=== PATIENT | female | born 1950 | race Caucasian/White ===

== ENCOUNTER 2016-12-19 20:41 | Emergency (ER) | payer OTHER ==
[~2016-12-19] VITALS: Ht 165.1 cm; Wt 96.0 kg
[~2016-12-19 20:41] MED LIST: CLON.5 PO; HYDRO50 PO; LEVO112T2 PO; PARO20TA PO; PERC5TAB12 PO; PRIM50 PO; PRIM50TA PO; SIMV20 PO; TOLT4 PO; TRAZ150T75 PO
[2016-12-19 20:45] VITALS: BP 161/91; PULSE 94; RESP 16; TEMP 98.5; O2SAT 96
[2016-12-19] MEDS ORDERED: SODIUM CHLORIDE 0.9% FLUSH 10 ML FLUSH IV FLUSH PRN (22:30)
[2016-12-19] MEDS ORDERED: PARO1TAB72 PO (22:44)
[2016-12-19] MEDS ORDERED: LEVO-168 PO (22:44)
[2016-12-19] MEDS ORDERED: CLON0.5T PO (22:44)
[2016-12-19] MEDS ORDERED: FLUT50SP EACH NARE (22:44)
[2016-12-19] MEDS ORDERED: HYDR50TA94 PO (22:44)
[2016-12-19] MEDS ORDERED: IBUP800T23 PO (22:44)
[2016-12-19 22:46] LABS: AUTOMATED NEUTROPHIL # 6.5 TH/MM3 (1.8-7.7); BASOPHIL # 0.1 TH/MM3 (0-0.2); BASOPHIL % 0.7 % (0.0-2.0); EOSINOPHIL # 0.2 TH/MM3 (0-0.4); EOSINOPHIL % 1.8 % (0.0-4.0); HEMATOCRIT 41.3 % (35.0-46.0); HEMO FLAGS DIFF FINAL; LYMPH % 28.3 % (9.0-44.0); MEAN CELL VOLUME 89.7 FL (80.0-100.0); MEAN CORPUSCULAR HEMOGLOBIN 30.5 PG (27.0-34.0); MONO % 8.2 % (0.0-8.0); PLATELET COUNT 227 TH/MM3 (150-450); RED CELL DISTRIBUTION WIDTH 13.8 % (11.6-17.2); WHITE BLOOD COUNT 10.6 TH/MM3 (4.0-11.0)
[2016-12-19] MEDS ORDERED: PRIM50TA5 PO (22:49)
[2016-12-19] MEDS ORDERED: TRAZ50TA12 PO (22:49)
[2016-12-19] MEDS ORDERED: SUMA50TA2 PO (22:49)
[2016-12-19] MEDS ORDERED: SIMV20TA PO (22:49)
--- NOTE | 2016-12-19 22:56 | PD ---
HPI Chief Complaint: Abdominal Pain Time Seen by Provider: 22:15 Travel History International Travel<30 days: No Contact w/Intl Traveler<30days: No Traveled to known affect area: No History of Present Illness HPI This is a 66-year-old female who presents to the emergency department with a week and a half of stabbing lower abdominal pain that lasts for several seconds and then subsides, intermittent, severe when it occurs feeling worse than labor pains. She denies any associated fevers, chills, vomiting, dysuria, frequency, urgency or vaginal discharge. She's never had pain like that before. She has had a hysterectomy in the past PFSH Past Medical History Anxiety: Yes Depression: Yes High Cholesterol: Yes Diminished Hearing: No Past Surgical History Appendectomy: Yes Hysterectomy: Yes Other Surgery: Yes (BREAST REDUCTION, THYROIDECTOMY) Social History Alcohol Use: Yes (occassional) Tobacco Use: No Substance Use: No Allergies-Medications (Allergen,Severity, Reaction): Coded Allergies: No Known Allergies (Unverified , 12/19/16) Reported Meds & Prescriptions Reported Meds & Active Scripts Active Reported Trazodone (Trazodone HCl) 50 Mg Tab 75 Mg PO HS Sumatriptan (Sumatriptan Succinate) 50 Mg Tab 50 Mg PO HS PRN If a satisfactory response has not been obtained at 2 hours, a second dose may be administered Simvastatin 20 Mg Tab 20 Mg PO HS Primidone 50 Mg Tab 100 Mg PO BID Paroxetine (Paroxetine HCl) 20 Mg Tab 20 Mg PO HS Levothyroxine (Levothyroxine Sodium) 112 Mcg Tab 112 Mcg PO DAILY Ibuprofen 800 Mg Tab 800 Mg PO Q8H PRN Hydroxyzine HCl 50 Mg Tab 50 Mg PO HS Fluticasone Nasal [place] 50 Mcg/Act Naspr 100 Mcg EACH NARE DAILY 50 mcg/spray Clonazepam 0.5 Mg Tab 0.5 Mg PO DAILY Review of Systems Except as stated in HPI: all other systems reviewed are Neg Physical Exam Narrative GENERAL:Well appearing, no acute distress SKIN: Focused skin assessment warm and dry. HEAD: Atraumatic. Normocephalic. EYES: Pupils equal and round. No injection or drainage. ENT: Moist mucous membranes NECK: Trachea midline. CARDIOVASCULAR: Regular rate and rhythm. No murmur appreciated. RESPIRATORY: Clear to auscultation. Breath sounds equal bilaterally. GASTROINTESTINAL: Abdomen soft, tender to palpation in the lower abdomen with no rebound or guarding. MUSCULOSKELETAL: No obvious deformities. NEUROLOGICAL: Awake and alert. No obvious cranial nerve deficits. Moving all extremities. PSYCHIATRIC: Appropriate mood and affect; insight and judgment normal. Data Data Last Documented VS Vital Signs Date Time Temp Pulse Resp B/P Pulse Ox O2 Delivery O2 Flow Rate FiO2 12/19/16 20:45 98.5 94 16 161/91 96 Room Air Orders Complete Blood Count With Diff (12/19/16 22:23) Comprehensive Metabolic Panel (12/19/16 22:23) Lipase (12/19/16 22:23) Lactic Acid (12/19/16 22:23) Urinalysis - C+S If Indicated (12/19/16 22:23) Ct Abd/Pel W Iv Contrast(Rout) (12/19/16 22:23) Iv Access Insert/Monitor (12/19/16 22:23) Ecg Monitoring (12/19/16 22:23) Oximetry (12/19/16 22:23) Sodium Chloride 0.9% Flush (Ns Flush) (12/19/16 22:30) Iohexol 350 Inj (Omnipaque 350 Inj) (12/20/16 00:34) Labs Laboratory Tests Test 12/19/16 22:32 White Blood Count 10.6 TH/MM3 Red Blood Count 4.60 MIL/MM3 Hemoglobin 14.0 GM/DL Hematocrit 41.3 % Mean Corpuscular Volume 89.7 FL Mean Corpuscular Hemoglobin 30.5 PG Mean Corpuscular Hemoglobin 34.0 % Concent Red Cell Distribution Width 13.8 % Platelet Count 227 TH/MM3 Mean Platelet Volume 8.9 FL Neutrophils (%) (Auto) 61.0 % Lymphocytes (%) (Auto) 28.3 % Monocytes (%) (Auto) 8.2 % Eosinophils (%) (Auto) 1.8 % Basophils (%) (Auto) 0.7 % Neutrophils # (Auto) 6.5 TH/MM3 Lymphocytes # (Auto) 3.0 TH/MM3 Monocytes # (Auto) 0.9 TH/MM3 Eosinophils # (Auto) 0.2 TH/MM3 Basophils # (Auto) 0.1 TH/MM3 CBC Comment DIFF FINAL Differential Comment Urine Color YELLOW Urine Turbidity HAZY Urine pH 6.0 Urine Specific [place] 1.026 Urine Protein TRACE mg/dL Urine Glucose (UA) NEG mg/dL Urine Ketones NEG mg/dL Urine Occult Blood NEG Urine Nitrite NEG Urine Bilirubin NEG Urine Urobilinogen LESS THAN 2.0 MG/DL Urine Leukocyte Esterase TRACE Urine RBC LESS THAN 1 /hpf Urine WBC 4 /hpf Urine Squamous Epithelial 1 /hpf Cells Urine Bacteria RARE /hpf Urine Mucus FEW /lpf Microscopic Urinalysis Comment CULT NOT INDICATED Sodium Level 140 MEQ/L Potassium Level 3.7 MEQ/L Chloride Level 104 MEQ/L Carbon Dioxide Level 27.7 MEQ/L Anion Gap 8 MEQ/L Blood Urea Nitrogen 14 MG/DL Creatinine 0.90 MG/DL Estimat Glomerular Filtration 62 ML/MIN Rate Random Glucose 81 MG/DL Lactic Acid Level 0.5 mmol/L Calcium Level 9.5 MG/DL Total Bilirubin 0.7 MG/DL Aspartate Amino Transf 27 U/L (AST/SGOT) Alanine Aminotransferase 36 U/L (ALT/SGPT) Alkaline Phosphatase 137 U/L Total Protein 7.9 GM/DL Albumin 3.8 GM/DL Lipase 79 U/L [facility] Medical Decision Making Medical Screen Exam Complete: Yes Emergency Medical Condition: Yes Interpretation(s) afebrile, mild tachycardia, hypertensive no leukocytosis electrolytes wtihin normal limits lactic 0.5 Last 24 hours Impressions Abdomen/Pelvis CT 12/19/163 Signed Impressions: Service Date/Time: Tuesday, December 20, 2016 00:27 - CONCLUSION: There are inflammatory changes involving the sigmoid colon suggestive of diverticulitis. No free fluid or loculated fluid collections are seen at this time. The rest of the exam is within normal limits for patient's age. Smooth Carmen MD Differential Diagnosis Colitis, diverticulitis, urinary tract infection, abscess Narrative Course This is a 66-year-old female who presents to the emergency department with lower abdominal pain that's been intermittent for 2 weeks. She is otherwise very well with no fevers or vomiting. Labs are obtained which demonstrate no leukocytosis and she is afebrile. CT abdomen and pelvis demonstrates diverticulitis. Given she so well I think she is a candidate for outpatient therapy. She has a primary care physician and I asked her to follow up with them in 2 days to make sure she is getting better. She was advised to return if she develops high fevers or worsening pain. Patient expressed understanding of the care plan. Diagnosis Primary Impression: Diverticulitis Qualified Code: K57.92 - Diverticulitis of intestine without perforation or abscess without bleeding, unspecified part of intestinal tract Patient Instructions: General Instructions Additional Instructions: Sometimes patients with diverticulitis require admission to the hospital for IV antibiotics. If you develop worsening or severe abdominal pain, persistent fevers, or inability to drink return to the emergency department. Follow a clear liquid diet for 3 days until you notice your symptoms improving, then slowly advance your diet. Complete your course of antibiotics. Follow up with your primary care physician as soon as possible to ensure you are improving. Med/Other Pt SpecificInfo: Prescription(s) given Scripts Tramadol 50 Mg Tab50 Mg PO Q6H PRN (PAIN) #14 TAB Prov:Kayla Serrano MD 12/20/16 Metronidazole (Flagyl)500 Mg [id number] Mg PO BID 10 Days Prov:Kayla Serrano MD 12/20/16 Ciprofloxacin 500 Mg [id number] Mg PO BID 10 Days Prov:Kayla Serrano MD 12/20/16 Disposition: 01 DISCHARGE HOME Condition: Stable Kayla Serrano MD Dec 19, 2016 22:56
[2016-12-19 23:18] LABS: BACTERIA, URINE RARE /hpf; BLOOD, URINE NEG (NEG); COMMENT (UR) CULT NOT INDICATED; CULTURE IF INDICATED CULT NOT INDICATED; GLUCOSE,URINE NEG (NEG); KETONE, URINE NEG (NEG); MUCUS URINE FEW /lpf (OCC); NITRITE,URINE NEG (NEG); SQUAMOUS EPITHELIAL CELL URINE 1 /hpf (0-5); URINE COLOR YELLOW (YELLW/STRAW)
[2016-12-19 23:19] LABS: ALT (GPT) 36 U/L (10-53); ANION GAP 8 MEQ/L (5-15); AST (GOT) 27 U/L (15-37); BICARBONATE 27.7 MEQ/L (21.0-32.0); BLOOD UREA NITROGEN 14 MG/DL (7-18); CHLORIDE 104 MEQ/L (98-107); GLOMERULAR FILTRATION RATE 62 ML/MIN (>89); POTASSIUM 3.7 MEQ/L (3.5-5.1); SODIUM (NA) 140 MEQ/L (136-145)
[2016-12-19 23:21] LABS: ALKALINE PHOSPHATASE 137 U/L (45-117); TOTAL BILIRUBIN ADULT 0.7 MG/DL (0.2-1.0)
[2016-12-20] MEDS ORDERED: IOHEXOL 350 MG/ML 10 ML VIAL (for RAD DIAG) IV ONE (00:34)
--- NOTE | 2016-12-20 00:59 | RADRPT ---
EXAM DATE/TIME: 12/20/2016 00:27 [facility] COMPARISON: No previous studies available for comparison. INDICATIONS : Bilateral lower quadrant pain. IV CONTRAST: 71 cc Omnipaque 350 (iohexol) IV ORAL CONTRAST: No oral contrast ingested. RADIATION DOSE: 11.02 CTDIvol (mGy) MEDICAL HISTORY : None SURGICAL HISTORY : Thyroidectomy. Appendectomy.Hysterectomy.Breast reduction. ENCOUNTER: Initial ACUITY: 2 weeks PAIN SCALE: 4/10 LOCATION: Bilateral lower quadrant TECHNIQUE: Volumetric scanning of the abdomen and pelvis was performed. Using automated exposure control and ad justment of the mA and/or kV according to patient size, radiation dose was kept as low as reasonably achievable to obtain optimal diagnostic quality images. DICOM format image data is available electro nically for review and comparison. FINDINGS: LOWER LUNGS: The visualized lower lungs are clear. LIVER: Homogeneous density without lesion. There is no dilation of the biliary tree. No calcified gallston es. SPLEEN: Normal size without lesion. PANCREAS: Within normal limits. KIDNEYS: Normal in size and shape. There is no mass, stone or hydronephrosis. ADRENAL GLANDS: Within normal limits. VASCULAR: There is no aortic aneurysm. BOWEL/MESENTERY: The bowel gas pattern is within normal limits. There is some scattered diverticula throughout the col on. However, there are mild inflammatory changes adjacent to the sigmoid colon with some thickening o f the wall of the sigmoid colon suggestive of some diverticulitis. No free fluid or loculated fluid c ollections are demonstrated. There is stool in the colon. ABDOMINAL WALL: Within normal limits. RETROPERITONEUM: There is no lymphadenopathy. BLADDER: No wall thickening or mass. REPRODUCTIVE: Within normal limits. INGUINAL: There is no lymphadenopathy or hernia. MUSCULOSKELETAL: Within normal limits for patient age. CONCLUSION: There are inflammatory changes involving the sigmoid colon suggestive of diverticulitis. No free flui d or loculated fluid collections are seen at this time. The rest of the exam is within normal limits for patient's age. Smooth Carmen MD on December 20, 2016 at 0:54 Board Certified Radiologist. This report was verified electronically.
[2016-12-20 01:00] VITALS: BP 120/66
[2016-12-20] MEDS ORDERED: CIPR500T2 PO (01:10)
[2016-12-20] MEDS ORDERED: TRAM50TA PO (01:10)
[2016-12-20] MEDS ORDERED: METR-1 PO (01:10)
[2016-12-20] MEDS ORDERED: metroNIDAZOLE 500 MG TAB PO ONE (01:15)
[2016-12-20] MEDS ORDERED: CIPROFLOXACIN 500 MG TAB PO ONE (01:15)
== END 2016-12-20 01:00 | disposition home or self-care (01) ==
LOC: NEPC 20:41
DX: K57.92 Diverticulitis of intestine, part unspecified, without perforation or abscess without bleeding (principal); R00.0 Tachycardia, unspecified; F41.9 Anxiety disorder, unspecified; F32.9 Major depressive disorder, single episode, unspecified; E78.00 Pure hypercholesterolemia, unspecified; Z79.899 Other long term (current) drug therapy
CPT/HCPCS: 74177; 80053; 81001; 83605; 83690; 85025; 99285; Q9967